=== PATIENT | male | born 1965 | race Caucasian/White ===

== ENCOUNTER → 2016-11-11 | Outpatient (CLI) | payer BC ==
[~2016-11-11] MED LIST: FLUT0.15 INH; LUBI8CAP4 PO; VALA500T60 PO; [UNRECOGNIZED DRUG - OTHER] PO
--- NOTE | 2016-11-11 10:13 | DIAGNOSTIC IMAGING REPORT ---
FUSION CT SINUSES W/O HISTORY: J34.3 Hypertrophy of both inferior nasal turbinates TECHNIQUE: Multiaxial CT images of the sinuses were performed and reformatted in the coronal plane without intravenous contrast. Fusion CT sinus protocol was also obtained. COMPARISON STUDY: Sinus CT outside hospital 10/11/2016. FINDINGS: Mild mucosal thickening within the frontal sinuses, sphenoid sinuses, and maxillary sinuses. This is not significantly change. No fluid levels within the paranasal sinuses. Near-complete opacification of the residual ethmoid air cells, right greater than left. A 4 mm polyp along the right side of the nasal septum remains unchanged. The mastoid air cells are clear. No evidence for carotid canal dehiscence. Minimal S-shaped deviation of the nasal septum with a small right-sided nasal spur. Left-sided scleral buckle is again noted. Postoperative changes of bilateral middle turbinectomies and maxillary antrostomies. The residual maxillary ostia demonstrate mild mucosal thickening but are patent. Bilateral frontoethmoidal recesses are partially opacified. The visualized brain parenchyma is unremarkable. Scattered punctate calcifications within the palatine tonsils. The pterygopalatine fossa are well-maintained. IMPRESSION: 1. No change compared to the prior study. 2. Mild mucosal thickening within the paranasal sinuses with near complete opacification of the ethmoid air cells, right greater than left. 3. Postoperative changes. The residual maxillary ostia are patent. Electronically signed by: Bebeto Lopez M.D. 11/11/2016 10:37 AM Dictated Date/Time: 11/11/2016 10:05 AM
[2016-11-11 14:39] LABS: BASO % 0.4 %; BASO ABS # 0.02 K/uL (0-0.2); COMPLETE YES; EOS % 3.9 %; HEMATOCRIT 42.4 % (42-52); LYMPH % 36.6 %; LYMPH ABS # 1.77 K/uL (1.2-3.4); MEAN CELL VOLUME 90.4 fL (80-100); MEAN CORPUSCULAR HEMOGLOBIN 29.6 pg (25-34); MEAN CORPUSCULAR HGB CONC 32.8 g/dl (32-36); MEAN PLATELET VOLUME 9.7 fL (7.4-10.4); MONO % 8.5 %; NEUT % 50.6 %; PLATELET COUNT 246 K/uL (130-400); RED BLOOD COUNT 4.69 M/uL (4.7-6.1); WHITE BLOOD COUNT 4.83 K/uL (4.8-10.8)
[2016-11-11 14:46] LABS: PROTHROMBIN TIME (PATIENT) 10.4 SECONDS (9.0-12.0)
[2016-11-11 15:03] LABS: POTASSIUM 4.4 mmol/L (3.5-5.1)
== END | disposition home or self-care (01) ==
LOC: C.CTS 09:32
DX: Z01.818 Encounter for other preprocedural examination (principal); J34.3 Hypertrophy of nasal turbinates

== ENCOUNTER → 2016-11-24 | Day surgery (SDC) | payer BC ==
[2016-11-13 07:53] VITALS: Ht 185.4 cm; Wt 123.6 kg
[~2016-11-24] VITALS: Ht 185.4 cm; Wt 123.6 kg
[~2016-11-24] MED LIST changes: +CEFAZOLIN 3000 MG/65 ML D5W IV SCH; +DEXAMETHASONE SOD INJ 4 MG/ML VIAL ONE; +EpINEphrine INJ 1MG/ML AMP 1 MG/ML AMP ONE; +FENTANYL CITRATE INJ 50 MCG/1 ML 2 ML VIAL ONE; +GLYCOPYRROLATE INJ 0.2 MG/ML VIAL ONE; +HYDROCODONE/ACETAMOPHEN 5/325MG TAB PO PRN; +KETAMINE HCL INJ 50 MG/ML 10 ML VIAL ONE; +LACTATED RINGER'S 1000ML 1,000 ML IV PRN; +LACTATED RINGER'S 1000ML 1,000 ML IV SCH; +LIDOCAINE 4% MPF SOAK 5 ML = 1 DOSE TOP ONE; +LIDOCAINE HCL 2% 2 ML VIAL (20MG/ML) ONE; +LIDOCAINE/EPINEPHRINE 1% INJ 50 ML VIAL ONE; +MIDAZOLAM HCL 1 MG/ML 2ML VIAL ONE; +NEOSTIGMINE METHYLSULFATE 5 MG/5 ML SYR ONE; +ONDANSETRON INJ 2 MG/ML 2 ML VIAL IV PRN; +ONDANSETRON INJ 2 MG/ML 2 ML VIAL ONE; +OXYMETAZOLINE HCL 0.05% NA SPR 15 ML BTL PRN; +OXYMETAZOLINE HCL 0.05% NA SPR 15 ML BTL SCH; +PROPOFOL IV EMULSION 10 MG/ML 20 ML VIAL IV ONE
--- NOTE | 2016-11-24 08:51 | History & Physical Bridge - SC ---
H&P Re-Evaluation Bridge Note: I have examined the patient, reviewed the History & Physical and in the interval since the performance of the History & Physical I have noted the following changes of clinical significance: No changes noted
[2016-11-24] MEDS: FENTANYL CITRATE INJ 50 MCG/1 ML 2 ML VIAL IV PRN ×2 (10:38→10:47)
--- NOTE | 2016-11-24 10:38 | [facility] Operative Report ---
Operative Report Operative Date November 24, 2016. Pre-Operative Diagnosis Chronic Sinusitis, Nasal Septal Deviation, Hypertrophy of Inferior Nasal Turbinates Post-Operative Diagnosis Same Procedure(s) Performed Revision Image Guided Endoscopic Sinus Surgery, Septoplasty, Bilateral Turbinate Reduction And Turbinoplasty Surgeon Dr. Whitfield Crude Tester Surgeon(s) None Estimated Blood Loss 25 mL Findings 1. SYNECHIA BETWEEN RIGHT SEPTUM AND LATERAL NASAL WALL 2. MILD TO MODERATE R DNS 3. L>R ITH 4. POLYPS WITHIN BILATERAL ETHMOID SINUSES 5. POLYPOID MUCOSAL THICKENING INVOLVING ALL PARANASAL SINUSES Specimens None I attest to the content of the Intraoperative Record and any orders documented therein. Any exceptions are noted below.
--- NOTE | 2016-11-24 10:40 | Discharge Instructions ---
Discharge Instructions Date of Service November 24, 2016. Admission Reason for Admission: Chronic Sinusitis, Nasal Septal Deviation, Hypertr Discharge Discharge Diagnosis / Problem: SAME Discharge Goals Goal(s): Therapeutic intervention Activity Recommendations Activity Limitations: as noted below NO DRIVING WHILE ON NORCO; LIGHT ACTIVITY FOR 2WEEKS; NO NOSE BLOWING FOR 2WEEKS . Current Hospital Diet Patient's current hospital diet: Discharge Diet Recommended Diet: Regular Diet Procedures Procedures Performed: Revision Image Guided Endoscopic Sinus Surgery, Septoplasty, Bilateral Turbinate Reduction And Turbinoplasty Pending Studies Studies pending at discharge: no Medical Emergencies . Who to Call and When: Medical Emergencies: If at any time you feel your situation is an emergency, please call 911 immediately. . Non-Emergent Contact Non-Emergency issues call your: Surgeon . . "Provider Documentation" section prepared by Benjamin Whitfield. . VTE Core Measure Inpt VTE Proph given/why not?: SCD's
--- NOTE | 2016-11-24 10:56 | Anesthesia Progress Nt - [facility] ---
Anesthesia Post Op Note Date & Time November 24, 2016 at 10:55 Vital Signs Pain Intensity: 5.0 Vital Signs Past 12 Hours Date Time Temp Pulse Resp B/P Pulse Ox O2 Delivery O2 Flow Rate FiO2 11/24/16 10:30 36.4 96 12 171/87 99 Humidified Oxygen 6 Mask 11/24/16 07:42 36.6 73 16 127/88 98 Room Air Notes Mental Status: alert / awake / arousable, participated in evaluation Pt Amnestic to Procedure: Yes Nausea / Vomiting: adequately controlled Pain: adequately controlled Airway Patency, RR, SpO2: stable & adequate BP & HR: stable & adequate Hydration State: stable & adequate Anesthetic Complications: no major complications apparent Pt doing well. Just some burning around surgical site.
[2016-11-24 11:14] VITALS: TEMP 36.5
[2016-11-24 12:05] VITALS: BP 149/85; PULSE 67; O2SAT 98
--- NOTE | 2016-11-24 15:31 | OPERATIVE REPORT ---
DATE OF OPERATION: 11/24/2016 PREOPERATIVE DIAGNOSES: 1. Chronic polypoid rhinosinusitis. 2. Right septal deviation. 3. Right nasal adhesions. 4. Left greater than right inferior turbinate hypertrophy. POSTOPERATIVE DIAGNOSES: 1. Chronic polypoid rhinosinusitis. 2. Right septal deviation. 3. Right nasal adhesions. 4. Left greater than right inferior turbinate hypertrophy. PROCEDURES: [employer] navigation image guided revision, bilateral endoscopic sinus surgery consisting of: 1. Revision bilateral maxillary antrostomies. 2. Revision bilateral complete ethmoidectomies. 3. Right nasal lysis of adhesions. 4. Balloon assisted bilateral frontal sinusotomies. 5. Bilateral sphenoidotomies. 6. Revision septoplasty. 7. Bilateral revision inferior turbinate outfracture and turbinoplasty. SURGEON: Dr. Whitfield. ANESTHESIA: General endotracheal. ESTIMATED BLOOD LOSS: 25 mL. FINDINGS: 1. Synechia between the right side of the nasal septum and the lateral nasal wall. 2. Mild to moderate right nasal septal deviation. 3. Left greater than right inferior turbinate hypertrophy. 4. Polyps within the bilateral ethmoid sinuses. 5. Very small previous maxillary antrostomies. 6. Polypoid mucosal thickening involving all of the paranasal sinuses bilaterally. SPECIMENS: None. COMPLICATIONS: None. INDICATIONS: The patient is a 51-year-old male with a history of chronic polypoid rhinosinusitis who underwent endoscopic sinus surgery by another surgeon several months ago. He continued to have symptomatology and states that the other surgeon said there was nothing else that he could do for him. He continued to have problems with recurrent acute and chronic rhinosinusitis requiring multiple antibiotics and steroids. A posttreatment fusion CT scan of the sinuses revealed bilateral pansinusitis with synechia between the right nasal septum and lateral nasal wall as well as evidence of likely polypoid mucosal thickening versus polyps involving the bilateral ethmoid sinuses. In addition, he has mild to moderate right septal deviation and left greater than right inferior turbinate hypertrophy. He presents for the above-mentioned procedure on an outpatient elective basis. DESCRIPTION OF PROCEDURE: After informed consent had been obtained from the patient, the patient was wheeled to the operating room and placed on the operating table in the supine position. Monitors were placed. After induction of general endotracheal anesthesia, the [employer] fusion headset was placed over the forehead and was registered, verified, and calibrated and used for the majority of the case. Lidocaine and epinephrine pledgets were placed in the bilateral nasal cavities and pressure applied. After allowing adequate time for vasoconstriction and decongestion, the left-sided pledgets were removed and the left side was inspected. There was a previous maxillary antrostomy, but this was quite small and there was some residual uncinate process that was evident. There was synechia between the left middle turbinate and lateral nasal wall blocking visualization of the superior aspect of the ethmoid sinus. The middle turbinate and lateral nasal wall as well as uncinate process were injected with 1% lidocaine with 1:100,000 epinephrine. A lidocaine and epinephrine pledget was then placed into the left ethmoid cavity/middle meatus. The right side was then addressed in a similar fashion with similar intraoperative findings except on this side there was also a synechia between the right side of the septum and the lateral nasal wall in the mid and posterior septum. This was injected with 1% lidocaine with 1:100,000 epinephrine. A freer elevator was used to lyse the synechia. Of note, there was mild to moderate right-sided septal deviation. A lidocaine and epinephrine pledget was then placed into the right ethmoid sinus. Left pledget was removed. Powered instrumentation was used to perform a revision complete ethmoidectomy removing large amount of polyps from the superior aspect of the anterior and posterior ethmoid sinuses. Using a curved frontal sinus suction, the left frontal sinus was entered and then the suction was removed. Using a size 7 frontal sinus balloon, the left frontal recess tract and frontal sinus was dilated by inflating the balloon to 12 atmospheres of pressure in 3 different locations along the left frontal recess tract. Powered instrumentation was used to remove diseased polypoid tissue from the left frontal ethmoid recess. The patient's previous maxillary antrostomy was found to be very small. This was enlarged posteriorly using straight Frantz-Cut forceps, inferiorly using backbiting forceps and powered instrumentation, and anteriorly using backbiting forceps and powered instrumentation. Of note, there was polypoid mucosal thickening involving the left maxillary sinus. Using a straight suction under image guidance, the left sphenoid sinus was then entered and the medial and inferior aspect of the sphenoid sinus ostium was enlarged using powered instrumentation. A pledget was then placed into the left ethmoid cavity. The right side was then addressed in a similar fashion with similar intraoperative findings. The nasal septum was then injected with 1% lidocaine with 1:100,000 epinephrine. After allowing adequate time for vasoconstriction, a #15 scalpel was used to make a left [place] incision through which the left-sided mucoperichondrial mucoperiosteal flap was elevated. There was residual quadrangular cartilage which was incised using a #15 scalpel. The right-sided mucoperichondrial mucoperiosteal flap was then elevated through this cartilaginous incision. There is residual septal cartilage superiorly and posteriorly which was removed using Justo-Delmy forceps. Inferiorly, there was a septal spur which was also addressed; however, the lining overlying this bone was quite thin and therefore a Hernandez elevator was used to infracture the nasal septum inferiorly to the left hand side from the right hand side in order to straighten out this bony septal spur rather than remove the bone for fear of causing a septal perforation. This resulted in improvement of the patient's nasal airway. The septal cavity was then suctioned. The left [place] incision was closed with several simple erupted 4-0 chromic sutures. A 4-0 plain gut suture and a Luis needle was then used to perform a quilting stitch of the mucoperichondrial mucoperiosteal flaps bilaterally to help prevent septal hematoma. A Hernandez elevator was then used to infracture and subsequently outfracture the inferior turbinates bilaterally. These were injected with 1% lidocaine with 1:100,000 epinephrine. A 2.0 mm turbinate blade using powered instrumentation was then used to perform bilateral inferior turbinoplasties in a submucosal fashion. Of note, there was left greater than right inferior turbinate hypertrophy. The sinonasal cavities were then suctioned. Merogel was then placed in the bilateral ethmoid cavities and middle meati. The nasal cavity and nasopharynx were then suctioned. An orogastric tube was placed and the stomach was suctioned free of air and stomach contents. This marked the end of the case. The patient tolerated the procedure well and there were no apparent complications. The patient was extubated and transferred to recovery room in stable condition. I attest to the content of the Intraoperative Record and any orders documented therein. Any exceptio ns are noted below.
== END | disposition home or self-care (01) ==
LOC: X.SURG 07:25
DX: J32.9 Chronic sinusitis, unspecified (principal); J34.2 Deviated nasal septum; J34.89 Other specified disorders of nose and nasal sinuses; J34.3 Hypertrophy of nasal turbinates; Z79.899 Other long term (current) drug therapy

== ENCOUNTER 2017-07-31 05:47 | Day surgery (SDC) | payer BC ==
[2017-07-03 11:24] VITALS: BMI 35.0
--- NOTE | 2017-07-03 12:00 | PAT Medication Instructions ---
Service Date Jul 03, 2017. Current Home Medication List Fluticasone Propionate (Nasal) (Flonase Allergy Relief), 1 SPRAY INTNAS QAM Lubiprostone (Amitiza), 8 MCG PO DIRECTED PRN for Constipation Valacyclovir (Valtrex), 500 MG PO BID PRN for OUTBREAKS [phentermine], 15 MG PO QAM Medication Instructions For Your Scheduled Surgery - Hold the following medications the morning of surgery: Lubiprostone (Amitiza), 8 MCG PO DIRECTED PRN for Constipation [phentermine], 15 MG PO QAM - Take the following medications the morning of surgery with a sip of water: Fluticasone Propionate (Nasal) (Flonase Allergy Relief), 1 SPRAY INTNAS QAM Valacyclovir (Valtrex), 500 MG PO BID PRN for OUTBREAKS - Take the following medications as scheduled the night before surgery: Lubiprostone (Amitiza), 8 MCG PO DIRECTED PRN for Constipation (if needed) Valacyclovir (Valtrex), 500 MG PO BID PRN for OUTBREAKS (if needed) If you have any questions please call us at [phone] or [phone] or [phone]
--- NOTE | 2017-07-03 12:52 | DIAGNOSTIC IMAGING REPORT ---
CHEST 2 VIEWS ROUTINE CLINICAL HISTORY: PAT preoperative evaluation COMPARISON STUDY: No previous studies for comparison. FINDINGS: The bones soft tissues and hemidiaphragms are normal. The cardiomediastinal silhouette is normal. The lungs are clear. The pulmonary vasculature is normal. IMPRESSION: Negative chest. The above report was generated using voice recognition software. It may contain grammatical, syntax or spelling errors. Electronically signed by: Enoch Adorno M.D. 07/03/2017 12:51 PM Dictated Date/Time: 07/03/2017 12:51 PM
[2017-07-03 12:58] LABS: BASO % 0.6 %; BASO ABS # 0.03 K/uL (0-0.2); EOS % 4.1 %; HEMATOCRIT 41.5 % (42-52); IG# 0.01 K/uL (0.00-0.02); LYMPH % 40.4 %; LYMPH ABS # 1.96 K/uL (1.2-3.4); MEAN CELL VOLUME 89.6 fL (80-100); MEAN CORPUSCULAR HEMOGLOBIN 30.2 pg (25-34); MEAN CORPUSCULAR HGB CONC 33.7 g/dl (32-36); MEAN PLATELET VOLUME 9.6 fL (7.4-10.4); MONO % 7.4 %; MONO ABS # 0.36 K/uL (0.11-0.59); NEUT % 47.3 %; NEUT ABS # 2.29 K/uL (1.4-6.5); PLATELET COUNT 222 K/uL (130-400); RED CELL DISTRIBUTION WIDTH CV 13.3 % (11.5-14.5); RED CELL DISTRIBUTION WIDTH SD 43.7 fL (36.4-46.3); WHITE BLOOD COUNT 4.85 K/uL (4.8-10.8)
[2017-07-03 13:06] LABS: PTT PATIENT 27.1 SECONDS (21.0-31.0)
[2017-07-03 13:30] LABS: HEMOGLOBIN A1C 5.7 % (4.5-5.6)
[2017-07-03 14:39] LABS: ALBUMIN 4.1 gm/dl (3.4-5.0); CALCIUM 9.2 mg/dl (8.5-10.1); CREATININE 1.09 mg/dl (0.60-1.40); POTASSIUM 4.2 mmol/L (3.5-5.1)
--- NOTE | 2017-07-30 13:30 | History and Physical ---
History & Physical Date Jul 30, 2017. Chief Complaint left foot pain History of Present Illness The patient is a 52 year old male with complaints of left great toe pain. He was treated conservatively for 1st MTP osteoarthritis but failed conservative management. He is now being set up for surgical tx. Past Medical/Surgical History PMH: Obesity Social Hx: No smoking, occasional alcohol use. Past surgical hx: left knee, left eye, Right 1st MTP hemiarthroplasty, sinus surgery Allergies Coded Allergies: No Known Allergies (Unverified , 07/03/17) Home Medications Scheduled Fluticasone Propionate (Nasal) (Flonase Allergy Relief), 1 SPRAY INTNAS QAM [phentermine], 15 MG PO QAM Scheduled PRN Lubiprostone (Amitiza), 8 MCG PO DIRECTED PRN for Constipation Valacyclovir (Valtrex), 500 MG PO BID PRN for OUTBREAKS Physical Examination Skin: warm/dry, no rash Eyes: normal inspection ENT: normal ENT inspection Head: normocephalic, atraumatic Neck: supple, no adenopathy, trachea midline Respiratory/Chest: lungs clear, normal breath sounds, no respiratory distress Cardiovascular: regular rate, rhythm, no murmur Abdomen / GI: normal bowel sounds, non tender Extremities: + pertinent finding (Left foot: 1st MTP swelling and dorsal prominence. Painful PROM. Tender at the 1st MTP. Tender at the 2nd toe. 2nd Hammertoe.) Neurologic/Psych: no motor/sensory deficits, alert, normal reflexes Diagnosis Left foot 1st MTP DJD Left foot 2nd hammertoe Plan of Treatment Recommend a left 1st MTP Arthrosurface hemiarthroplasty, 2nd DIP joint DuVries arthroplasty. All potential risks, benefits, complications, alternatives, and rehab have been discussed and the patient wishes to proceed. He will be scheduled for 07.31.17.
[~2017-07-31] VITALS: Ht 188 cm; Wt 123.6 kg
[~2017-07-31 05:47] MED LIST changes: -CEFAZOLIN 3000 MG/65 ML D5W IV SCH; -DEXAMETHASONE SOD INJ 4 MG/ML VIAL ONE; -EpINEphrine INJ 1MG/ML AMP 1 MG/ML AMP ONE; -FENTANYL CITRATE INJ 50 MCG/1 ML 2 ML VIAL ONE; -FLUT0.15 INH; +FLUT0.15 INTNAS; -GLYCOPYRROLATE INJ 0.2 MG/ML VIAL ONE; -HYDROCODONE/ACETAMOPHEN 5/325MG TAB PO PRN; -KETAMINE HCL INJ 50 MG/ML 10 ML VIAL ONE; -LACTATED RINGER'S 1000ML 1,000 ML IV PRN; -LACTATED RINGER'S 1000ML 1,000 ML IV SCH; -LIDOCAINE 4% MPF SOAK 5 ML = 1 DOSE TOP ONE; -LIDOCAINE HCL 2% 2 ML VIAL (20MG/ML) ONE; -LIDOCAINE/EPINEPHRINE 1% INJ 50 ML VIAL ONE; -MIDAZOLAM HCL 1 MG/ML 2ML VIAL ONE; -NEOSTIGMINE METHYLSULFATE 5 MG/5 ML SYR ONE; -ONDANSETRON INJ 2 MG/ML 2 ML VIAL IV PRN; -ONDANSETRON INJ 2 MG/ML 2 ML VIAL ONE; -OXYMETAZOLINE HCL 0.05% NA SPR 15 ML BTL PRN; -OXYMETAZOLINE HCL 0.05% NA SPR 15 ML BTL SCH; -PROPOFOL IV EMULSION 10 MG/ML 20 ML VIAL IV ONE; -[UNRECOGNIZED DRUG - OTHER] PO; +phentermine PO
[2017-07-31] MEDS ORDERED: LACTATED RINGER'S 1000ML 1,000 ML IV SCH (06:00)
[2017-07-31] MEDS ORDERED: CEFAZOLIN 3000MG IV PUSH 15 ML IV SCH (06:00)
[2017-07-31 06:16] VITALS: BP 118/85; PULSE 63; TEMP 36.7; O2SAT 98; Ht 188 cm; Wt 123.6 kg
[2017-07-31] MEDS ORDERED: ROPIVACAINE 0.5% 5 MG/ML 30 ML VIAL ONE (06:29)
[2017-07-31] MEDS ORDERED: BUPIVACAINE 0.25% 30 ML VIAL ONE (06:30)
[2017-07-31] MEDS ORDERED: BACITRACIN 50000 UNIT VIAL ONE (06:50)
[2017-07-31] MEDS ORDERED: MIDAZOLAM HCL 1 MG/ML 2ML VIAL ONE ×2 (07:08→07:22)
[2017-07-31] MEDS ORDERED: DEXAMETHASONE SOD INJ 4 MG/ML VIAL ONE (07:08)
[2017-07-31] MEDS ORDERED: LIDOCAINE HCL 2% 2 ML VIAL (20MG/ML) ONE (07:08)
[2017-07-31] MEDS ORDERED: FENTANYL CITRATE INJ 50 MCG/1 ML 2 ML VIAL ONE ×4 (07:08→09:51)
[2017-07-31] MEDS ORDERED: ONDANSETRON INJ 2 MG/ML 2 ML VIAL ONE (07:08)
[2017-07-31] MEDS ORDERED: PROPOFOL IV EMULSION 10 MG/ML 20 ML VIAL IV ONE (07:08)
[2017-07-31] MEDS ORDERED: KETAMINE HCL INJ 50 MG/ML 10 ML VIAL ONE (07:12)
--- NOTE | 2017-07-31 09:16 | [facility] Post Operative Brief Note ---
Immediate Operative Summary Operative Date Jul 31, 2017. 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 Zulay Em [facility] Manager Surgeon(s) Remington Encarnacion PA-C Estimated Blood Loss 1 ml Findings see dict Specimens None Per Surgeon Drains None Anesthesia GLMA w/ popliteal block Complication(s) None Disposition Recovery Room / PACU
[2017-07-31] MEDS ORDERED: OXYC-57 PO (09:36)
[2017-07-31] MEDS ORDERED: PROM25TA9 PO (09:36)
[2017-07-31] MEDS ORDERED: ASPI81TA28 PO (09:36)
--- NOTE | 2017-07-31 09:38 | Discharge Instructions ---
Discharge Instructions Date of Service Jul 31, 2017. Admission Reason for Admission: Left Ankle/Foot Osteoarthritis, Hammer Toe(S) Discharge Discharge Diagnosis / Problem: left 1st metatarsalphalangeal osteoarthritis Discharge Goals Goal(s): Decrease discomfort, Improve function Activity Recommendations Activity Limitations: per Instructions/Follow-up section Weightbearing Status: Left partial (Heel weightbearing in boot only) . Instructions / Follow-Up Instructions / Follow-Up ACTIVITY RECOMMENDATIONS: Limitations: Heel weight bearing only if able to tolerate. Range of motion: The pin in the 2nd toe will keep your 2nd toe from moving. When you feel comfortable, you may do passive range of motion with your great toe. Passive range of motion means that you manipulate the big toe to do small ranges of flexion and extension. The dressing will inhibit too much motion. SPECIAL CARE INSTRUCTIONS: * Some drainage onto the dressing is normal and is no cause for alarm. * Some swelling is natural especially after walking. * When resting, keep your foot elevated above the level of your heart. * Call [facility] if you notice: -Increased drainage -Fever over 101 degrees F -Severe constant pain BANDAGE: * Leave bandage/cast in place unless otherwise directed. * Keep bandage/cast dry at all times. PIN CARE: * Leave pins alone. * If pins come loose or fall out, notify physician. FOLLOW UP VISIT WITH DR. GAMBINO If appointment is not already scheduled: Please call [facility] after you get home today to schedule a follow-up appointment for [address] Gambino at . Current Hospital Diet Patient's current hospital diet: Discharge Diet Recommended Diet: Regular Diet Procedures Procedures Performed: Left Foot 1st Metatarsophalangeal Joint Arthrosurface Hemiarthroplasty, 2nd Distal Interphalangeal DuVries Arthroplasty Procedure Pending Studies Studies pending at discharge: no Laboratory Results Hemoglobin A1c Test 07/03/17 12:06 Range/Units Estimated Average Glucose 117 mg/dl Hemoglobin A1c 5.7 H 4.5-5.6 % Medical Emergencies . Who to Call and When: Medical Emergencies: If at any time you feel your situation is an emergency, please call 911 immediately. . Non-Emergent Contact Non-Emergency issues call your: Surgeon Call Non-Emergent contact if: temperature is above 101, your pain is not controlled, your pain is worsening, wound has increased drainage . "Provider Documentation" section prepared by Remington Encarnacion. . VTE Core Measure Inpt VTE Proph given/why not?: SCD's
--- NOTE | 2017-07-31 09:40 | OPERATIVE REPORT ---
DATE OF OPERATION: 07/31/2017 PREOPERATIVE DIAGNOSES: 1. 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 2. Hallux rigidus. 3. Second hammertoe involving the distal interphalangeal joint. POSTOPERATIVE DIAGNOSES: Same. PROCEDURES: 1. Left foot first metatarsophalangeal joint Arthrosurface hemiarthroplasty. 2. Second distal interphalangeal joint DuVries arthroplasty. SURGEON: Dr. Bakari Em. ENGINE REPAIRER: Remington Encarnacion PA-C, who was present for patient positioning, sterile prep and drape, management of retractors and instruments. He was present through the critical portions of the case including wound closure, application of sterile dressing and transport of the patient to recovery. ANESTHESIA: General LMA with popliteal block. SPECIMENS: None. DRAINS: None. COMPLICATIONS: None. BLOOD LOSS: 1 mL. PERTINENT HISTORY: This is a 52-year-old gentleman with chronic progressive and ongoing left foot pain and deformity. He attempted conservative management including shoe wear modification, activity modification, shoe inserts, anti-inflammatories, rest, ice, elevation and joint injections. He had failed all measures. He had radiographic evidence of severe degenerative changes with loss of joint space, marginal osteophytes, subchondral sclerosis and subchondral cysts in the first metatarsophalangeal joint. The patient was scheduled for surgery as indicated. All potential risks, benefits, complications, alternatives, rehab, potential for incomplete relief of symptoms, need for further surgery, DVT, PE, , persistent pain, swelling, scarring, weakness, neurovascular injury, wound complications, hardware failure, nonunion, and malunion were discussed with the patient. The patient decided to proceed with the procedure as indicated. DESCRIPTION OF PROCEDURE: After popliteal block was administered, the patient was taken to the operative suite, placed supine on the operating room table. After reviewing consent and identification of proper operative site, the patient was anesthetized, LMA was placed. Tourniquet was placed high on the left thigh over cast padding. Left lower extremity was then sterilely prepped and draped in the usual fashion, elevated and exsanguinated with an Esmarch bandage. Esmarch tourniquet was applied over sterile surgical towel at the level of the ankle. The pneumatic tourniquet was not used during the case. Next, a 15 blade scalpel was used to make an incision over the dorsal aspect of the first metatarsophalangeal joint. The incision was then deepened through the subcutaneous tissue. Meticulous hemostasis was achieved with electrocautery. Full thickness skin flaps were developed. The extensor hallucis longus was identified, freed, retracted, and protected laterally. Next, a Weitlaner retractor was placed in the incision and then the dorsal capsule and extensor brevis was then incised in line with skin incision, elevated both medially and laterally. Next, a hypertrophic synovium was encountered and this was resected with a rongeur. Next, the capsule was then retracted with a rongeur and a 15 blade scalpel was used to release the capsular attachments of the first metatarsophalangeal joint dorsally, medially and laterally. Next, a McGlamry elevator was placed into the joint between the first metatarsal and the sesamoids. This was then hyperplantarflexed to release soft tissue contracture. Next, the rongeur was used to resect marginal osteophytes at the proximal phalanx of the great toe. Next, the wound was copiously irrigated with sterile normal saline. This was then followed by use of a guide pin and under fluoroscopic assistance was placed essentially into the center-center position of the first metatarsal. Next, the initial reamer was passed over the guidepin and used to ream for the post. Next, the bone tap was then used to tap the first metatarsal followed by irrigation with copious amounts of sterile normal saline with bacitracin and then implantation of the threaded post. This was countersunk approximately 1-1.25 mm. Next, the Law taper alignment carmita was then placed into the threaded post followed by measurement of the first metatarsal head. Next, appropriate dorsal phalange reamer was then placed into the threaded posts and then used to ream the dorsal phalange of the first metatarsal. Next, this was irrigated with sterile normal saline. A trial was then placed gently into the Carlos taper of the threaded post and then a sagittal saw was used to resect osteophytes circumferentially from around the trial within the first metatarsal head. Next, after excess bone was then excised wound was irrigated once again with sterile normal saline. This was then followed by impaction of the final implant into the threaded post and radiographs were obtained confirming position and alignment. A 15 blade scalpel incision was performed at the distal interphalangeal joint of the left second toe. Full thickness skin incision was made through the skin, extensor mechanism and capsule to the distal interphalangeal joint. Collateral ligaments were sacrificed with a 15 blade scalpel. Osteophytes were removed from the joint circumferentially and the distal aspect of the middle phalanx was then resected using a bone biting rongeur. Next, the wound was irrigated copiously with sterile normal saline. Next, 0.045-inch K-wire was driven out the tip of the second toe in a retrograde fashion under live fluoroscopic assistance, passed through the middle phalanx, proximal phalanx and then the second metatarsal. The tip of the pin was left outside the skin and it was then bent, cut and capped with the [place] ball. The wound was irrigated with sterile normal saline and then closed using 4-0 nylon sutures. Next, the wound was once again irrigated with sterile normal saline. The dorsal capsule was closed using 3-0 Vicryl suture then followed by closure of the dermis with buried interrupted 3-0 Vicryl x2 sutures and the skin was then closed using 4-0 nylon. Next, sterile compressive forefoot dressing was applied overwrapped with Coban. The tourniquet was released. The patient was awakened and taken to recovery in stable condition. I attest to the content of the Intraoperative Record and any orders documented therein. Any exception s are noted below.
[2017-07-31] MEDS ORDERED: FENTANYL CITRATE INJ 50 MCG/1 ML 2 ML VIAL IV PRN (09:45)
[2017-07-31] MEDS ORDERED: ATROPINE SULFATE 0.1 MG/ML 5ML SYR IV PRN (09:45)
[2017-07-31] MEDS ORDERED: OXYCODONE/ACETAMINOPHEN 5-325 TAB PO PRN (09:45)
[2017-07-31] MEDS ORDERED: EpHEDrine SULFATE INJ 50 MG/ML AMP IV PRN (09:45)
[2017-07-31] MEDS ORDERED: ONDANSETRON INJ 2 MG/ML 2 ML VIAL IV PRN (09:45)
[2017-07-31 10:20] VITALS: BP 119/72; PULSE 80; TEMP 36.3; O2SAT 100
--- NOTE | 2017-07-31 10:31 | DIAGNOSTIC IMAGING REPORT ---
FOOT MIN 3 VIEWS ROUTINE CLINICAL HISTORY: 52 years-old Male presenting with LT FOOT. TECHNIQUE: 2 fluoroscopic spot image(s) obtained as part of an intraoperative procedure. COMPARISON: None. FINDINGS/IMPRESSION: Single pin fixation across the second toe into the second metatarsal extending to the level of the proximal metaphysis of the second metatarsal. Postsurgical changes of prosthetic first metatarsal head. Normal anatomic alignment. Please see surgical report for further details. Fluoroscopy dosage (mGy): 0.8. Fluoroscopy time: 36.1 seconds. Number of fluoroscopic spot images: 2. Electronically signed by: Jaguar Patterson M.D. 07/31/2017 10:30 AM Dictated Date/Time: 07/31/2017 10:29 AM
--- NOTE | 2017-07-31 10:34 | Anesthesiology Progress Note ---
Anesthesia Post Op Note Date & Time Jul 31, 2017 at 10:34 Vital Signs Pain Intensity: 9 Vital Signs Past 12 Hours Date Time Temp Pulse Resp B/P (MAP) Pulse Ox O2 Delivery O2 Flow Rate FiO2 07/31/17 10:20 36.3 80 20 119/72 100 Room Air 07/31/17 10:05 36.3 55 16 134/83 100 Oxymask 3 07/31/17 09:55 64 16 120/83 99 Oxymask 3 07/31/17 09:45 65 16 130/84 99 Oxymask 10 07/31/17 09:35 36.2 66 16 117/73 99 Oxymask 10 07/31/17 06:16 36.7 63 20 118/85 (96) 98 Room Air Notes Mental Status: alert / awake / arousable, participated in evaluation Pt Amnestic to Procedure: Yes Nausea / Vomiting: adequately controlled Pain: adequately controlled Airway Patency, RR, SpO2: stable & adequate BP & HR: stable & adequate Hydration State: stable & adequate Anesthetic Complications: no major complications apparent
[2017-07-31 10:52] VITALS: BP 145/93; PULSE 60; O2SAT 97
[2017-07-31 11:17] VITALS: BP 150/79; PULSE 59; TEMP 36.7; O2SAT 98
[2017-07-31] MEDS ORDERED: HYDROmorphone INJ 2 MG/ML SYR/VIAL ONE (11:26)
[2017-07-31] MEDS ORDERED: HYDROmorphone INJ 1 MG/ML SYR IV ONE ×2 (11:30→12:00)
[2017-07-31 11:50] VITALS: BP 114/76; PULSE 66; O2SAT 95
[2017-07-31 12:50] VITALS: BP 123/79; PULSE 61; TEMP 36; O2SAT 100
== END 2017-07-31 13:10 | disposition home or self-care (01) ==
LOC: C.ACU 05:47
PROVIDERS: ATTEND Orthopaedic Surgery Sports Medicine
DX: M19.072 Primary osteoarthritis, left ankle and foot (principal); M20.22 Hallux rigidus, left foot; M20.42 Other hammer toe(s) (acquired), left foot; Z98.890 Other specified postprocedural states; E66.9 Obesity, unspecified; Z68.35 Body mass index [BMI] 35.0-35.9, adult

== ENCOUNTER → 2017-11-17 | Outpatient (CLI) | payer BC ==
[~2017-11-17] MED LIST changes: +AMOX875T PO; +ASPI81TA28 PO; +CPRDOTS OT; +DICL250C73 PO; +HYDR-5688 PO; +IBUP-1050 PO; +IBUP-1451 PO; +OFLO0.3D4 OT; +OXYC-57 PO; +PHEN37.5 PO; +PRED20TA2 PO; +PROM25TA9 PO; +VALA1TAB31 PO
--- NOTE | 2017-11-17 10:20 | DIAGNOSTIC IMAGING REPORT ---
TEMPORAL ORB/SELLA/TEMP W/O CLINICAL HISTORY: RT EAR PAIN pain TECHNIQUE: Transaxial acquisition with multi axial reformatted images COMPARISON STUDY: None FINDINGS: Near complete opacification of the right maxillary sinuses. No definite bony destructive changes identified at the current time. There is abnormal soft tissue encompassing all major ossicles of the middle ear. The scutum shows no evidence for erosive change. The tympanic membrane shows associated soft tissue obscuring its visualization. This suggestive of potential superimposed cholesteatoma versus extension of inflammatory tissue from the mastoids. Semicircular canals appear generally intact. Left mastoid is clear. The tympanic membrane is unremarkable. The left ossicles appear to be intact. IMPRESSION: 1. Near complete opacification of the right mastoid air cells with soft tissue opacification of the bulk of the middle ear encompassing the tympanic membrane and ossicles. 2. This may be a combination of right mastoiditis combined with a cholesteatoma, although the possibility of inflammatory change of the right mastoid invading into the middle ear cavity must be considered. 3. Left mastoids and left middle ear structures are unremarkable. 4. Postoperative changes to the sinuses which have been described previously including placement of bilateral antral windows and moderate residual mucosal thickening of all major sinuses. The above report was generated using voice recognition software. It may contain grammatical, syntax or spelling errors. Electronically signed by: Enoch Adorno M.D. 11/17/2017 10:18 AM Dictated Date/Time: 11/17/2017 10:13 AM
== END | disposition home or self-care (01) ==
LOC: C.CTS 09:42
PROVIDERS: ATTEND Physician Assistant
DX: H92.01 Otalgia, right ear (principal)

== ENCOUNTER 2017-11-18 10:54 | Emergency (ER) | payer BC ==
[~2017-11-18] VITALS: Ht 188 cm; Wt 127.0 kg
[~2017-11-18 10:54] MED LIST changes: -AMOX875T PO; -CPRDOTS OT; -DICL250C73 PO; -HYDR-5688 PO; -IBUP-1050 PO; -IBUP-1451 PO; -OFLO0.3D4 OT; -PHEN37.5 PO; -PRED20TA2 PO; -VALA1TAB31 PO
[2017-11-18 10:58] VITALS: TEMP 36.6
[2017-11-18] MEDS ORDERED: ONDANSETRON INJ 2 MG/ML 2 ML VIAL IV STA (11:08)
[2017-11-18] MEDS ORDERED: KETOROLAC TROMETHAMINE 30 MG/ML VIAL IV STA ×2 (11:08→13:34)
[2017-11-18] MEDS ORDERED: MoRPHine SULFATE 4 MG/ML 1 ML CARP\\VIAL IV STA (11:08)
[2017-11-18] MEDS ORDERED: SODIUM CHLORIDE 0.9% 1000ML 1,000 ML IV STA ×2 (11:08→11:36)
[2017-11-18] MEDS ORDERED: ACETAMINOPHEN IV 100 ML IV STA (11:08)
[2017-11-18] MEDS ORDERED: AMPICILLIN/SULBACTAM SOD INJ 3,000 MG in SODIUM CHLORIDE 0.9% 100ML 100 ML IV STA (11:36)
[2017-11-18] MEDS ORDERED: DEXAMETHASONE **PF** INJ 10 MG/ML VIAL IV ONE (11:45)
[2017-11-18 11:51] VITALS: Ht 188 cm; Wt 127.0 kg
[2017-11-18 11:59] LABS: BASO % 0.6 %; BASO ABS # 0.05 K/uL (0-0.2); EOS % 1.9 %; EOS ABS # 0.15 K/uL (0-0.5); HEMOGLOBIN 14.1 g/dL (14.0-18.0); IG# 0.06 K/uL (0.00-0.02); LYMPH % 34.6 %; LYMPH ABS # 2.68 K/uL (1.2-3.4); MEAN CELL VOLUME 86.9 fL (80-100); MEAN CORPUSCULAR HEMOGLOBIN 29.9 pg (25-34); MEAN CORPUSCULAR HGB CONC 34.4 g/dl (32-36); MONO % 9.4 %; MONO ABS # 0.73 K/uL (0.11-0.59); NEUT % 52.7 %; NEUT ABS # 4.07 K/uL (1.4-6.5); PLATELET COUNT 328 K/uL (130-400); RED CELL DISTRIBUTION WIDTH CV 12.6 % (11.5-14.5); RED CELL DISTRIBUTION WIDTH SD 40.8 fL (36.4-46.3); WHITE BLOOD COUNT 7.74 K/uL (4.8-10.8)
[2017-11-18 12:16] LABS: ALBUMIN 3.6 gm/dl (3.4-5.0); ALT/SGPT 59 U/L (12-78); AST/SGOT 25 U/L (15-37); BLOOD UREA NITROGEN 13 mg/dl (7-18); CALCIUM 9.7 mg/dl (8.5-10.1); CARBON DIOXIDE 27 mmol/L (21-32); CREATININE 1.22 mg/dl (0.60-1.40); GLUCOSE 106 mg/dl (70-99); LIPASE 114 U/L (73-393); POTASSIUM 4.5 mmol/L (3.5-5.1); SODIUM 134 mmol/L (136-145)
[2017-11-18] MEDS ORDERED: VALA1TAB31 PO (12:18)
[2017-11-18] MEDS ORDERED: DICL250C73 PO (12:18)
[2017-11-18] MEDS ORDERED: OFLO0.3D4 OT (12:18)
[2017-11-18] MEDS ORDERED: PHEN37.5 PO (12:18)
[2017-11-18 12:19] LABS: ALKALINE PHOSPHATASE 73 U/L (45-117); TOTAL PROTEIN 8.8 gm/dl (6.4-8.2)
[2017-11-18] MEDS ORDERED: MoRPHine SULFATE 10 MG/ML CARP/VIAL IV STA (13:07)
[2017-11-18] MEDS ORDERED: LIDOCAINE 1% BUFFERED INJ 5 ML VIAL INFIL STA (13:34)
[2017-11-18] MEDS ORDERED: IBUP-1451 PO (16:16)
[2017-11-18 16:18] VITALS: BP 160/89; PULSE 64; O2SAT 98
--- NOTE | 2017-11-18 16:18 | EMERGENCY ROOM VISIT NOTE ---
History Report prepared by Johann: Paulo Raza Under the Supervision of: Dr. Truong Corcoran M.D. First contact with patient: 11:03 Chief Complaint: EAR PAIN Stated Complaint: REALLY BAD EAR INFECTION, SENT BY [facility] History of Present Illness The patient is a 52 year old male who presents to the Emergency Room with complaints of constant right ear pain beginning 10 days ago. The patient describes his pain as "stabbing". He also complains of a headache and occasional dizziness. He was seen at [facility] six days ago and was discharged on Augmentin and Ofloxacin. The patient saw acute care in [place] five days ago, and was discharged on hydrocodone. He states that he felt a "pop" while sleeping three days ago, and noticed blood on his pillow. He saw his primary care office two days ago, and was sent home on Dicloxacillin. The patient received a temporal bone CT today with his primary care office. He was then seen by Dr. Whitfield of ENT this morning and was told that he should be admitted to the hospital. Dr. Whitfield told the patient he would admit him, but will be going on vacation and recommended consultation with Dr. Thomason. Dr. Whitfield drained his ear in his office today. The patient's CT showed congestion of the ear. He states that he has had fevers for the past several days. He states that he has been vomiting every time he eats as well. He is able to keep down water. The patient denies cough, chills, or congestion. He is not on any blood thinners. He states that his Hydrocodone temporarily resolves his pain for 40-50 minutes at a time. Source of History: patient Onset: 10 days ago Position: ear (right) Quality: stabbing Timing: constant Associated Symptoms: + fevers, + headache, + vomiting, No chills, No cough Note: Negative: congestion. Positive: occasional dizziness. Review of Systems See HPI for pertinent positives and negatives. A total of ten systems were reviewed and were otherwise negative. Past Medical & Surgical Medical Problems: (1) No Known Active Medical Problems Surgical Problems: (1) H/O sinus surgery Family History No pertinent family history stated. Social History Smoking Status: Never Smoker Housing Status: lives with family Occupation Status: employed Current/Historical Medications Scheduled Dicloxacillin Sodium (Dynapen), 250 MG PO Q6 Fluticasone Propionate (Nasal) (Flonase Allergy Relief), 1 SPRAY INTNAS QAM Ofloxacin (Otic) (Floxin Otic), 10 DROPS OT Q12 Phentermine Hcl (Phentermine Hcl), 1 TAB PO QAM Valacyclovir Hcl (Valtrex), 1 TAB PO Q12 Scheduled PRN Ibuprofen Tab (Motrin), 800 MG PO Q8H PRN for Pain Allergies Coded Allergies: No Known Allergies (Verified , 11/18/17) Physical Exam Vital Signs Date Time Temp Pulse Resp B/P (MAP) Pulse Ox O2 Delivery O2 Flow Rate FiO2 11/18/17 16:18 64 18 160/89 98 11/18/17 15:45 63 22 147/91 11/18/17 13:43 56 20 135/86 97 Room Air 11/18/17 12:35 54 11/18/17 11:50 56 22 130/97 98 Room Air 11/18/17 10:58 36.6 78 20 163/101 99 Room Air Physical Exam GENERAL: Awake, alert, uncomfortable-appearing, in no distress HENT: Normocephalic, atraumatic. Oropharynx unremarkable other than dry mucous membranes. Edematous right EAC and TM with purulent discharge. Unable to assess for perforation given edema and patient discomfort. Significant right mastoid tenderness. No swelling or redness. EYES: Normal conjunctiva. Sclera non-icteric. NECK: Supple. No nuchal rigidity. FROM. No JVD. RESPIRATORY: Clear to auscultation. CARDIAC: Regular rate, normal rhythm. Extremities warm and well perfused. Pulses equal. ABDOMEN: Soft, non-distended. No tenderness to palpation. No rebound or guarding. No masses. RECTAL: Deferred. MUSCULOSKELETAL: Chest examination reveals no tenderness. The back is symmetrical on inspection without obvious abnormality. There is no CVA tenderness to palpation. No joint edema. LOWER EXTREMITIES: Calves are equal size bilaterally and non-tender. No edema. No discoloration. NEURO: Normal sensorium. No sensory or motor deficits noted. SKIN: No rash or jaundice noted. Medical Decision & Procedures ER Provider Diagnostic Interpretation: Radiology results as stated below per my review and radiologist interpretation: TEMPORAL ORB/SELLA/TEMP W/O (11/17/2017 - Yesterday) FINDINGS: Near complete opacification of the right maxillary sinuses. No definite bony destructive changes identified at the current time. There is abnormal soft tissue encompassing all major ossicles of the middle ear. The scutum shows no evidence for erosive change. The tympanic membrane shows associated soft tissue obscuring its visualization. This suggestive of potential superimposed cholesteatoma versus extension of inflammatory tissue from the mastoids. Semicircular canals appear generally intact. Left mastoid is clear. The tympanic membrane is unremarkable. The left ossicles appear to be intact. IMPRESSION: 1. Near complete opacification of the right mastoid air cells with soft tissue opacification of the bulk of the middle ear encompassing the tympanic membrane and ossicles. 2. This may be a combination of right mastoiditis combined with a cholesteatoma, although the possibility of inflammatory change of the right mastoid invading into the middle ear cavity must be considered. 3. Left mastoids and left middle ear structures are unremarkable. 4. Postoperative changes to the sinuses which have been described previously including placement of bilateral antral windows and moderate residual mucosal thickening of all major sinuses. The above report was generated using voice recognition software. It may contain grammatical, syntax or spelling errors. Electronically signed by: Enoch Adorno M.D. 11/17/2017 10:18 AM Laboratory Results 11/18/17 11:40 Red Blood Count 4.72, Mean Corpuscular Volume 86.9, Mean Corpuscular Hemoglobin 29.9, Mean Corpuscular Hemoglobin Concent 34.4, Mean Platelet Volume 9.0, Neutrophils (%) (Auto) 52.7, Lymphocytes (%) (Auto) 34.6, Monocytes (%) (Auto) 9.4, Eosinophils (%) (Auto) 1.9, Basophils (%) (Auto) 0.6, Neutrophils # (Auto) 4.07, Lymphocytes # (Auto) 2.68, Monocytes # (Auto) 0.73, Eosinophils # (Auto) 0.15, Basophils # (Auto) 0.05 11/18/17 11:40 Test 11/18/17 11:40 11/18/17 13:56 White Blood Count 7.74 K/uL (4.8-10.8) Red Blood Count 4.72 M/uL (4.7-6.1) Hemoglobin 14.1 g/dL (14.0-18.0) Hematocrit 41.0 % (42-52) Mean Corpuscular Volume 86.9 fL (80-100) Mean Corpuscular Hemoglobin 29.9 pg (25-34) Mean Corpuscular Hemoglobin Concent 34.4 g/dl (32-36) Platelet Count 328 K/uL (130-400) Mean Platelet Volume 9.0 fL (7.4-10.4) Neutrophils (%) (Auto) 52.7 % Lymphocytes (%) (Auto) 34.6 % Monocytes (%) (Auto) 9.4 % Eosinophils (%) (Auto) 1.9 % Basophils (%) (Auto) 0.6 % Neutrophils # (Auto) 4.07 K/uL (1.4-6.5) Lymphocytes # (Auto) 2.68 K/uL (1.2-3.4) Monocytes # (Auto) 0.73 K/uL (0.11-0.59) Eosinophils # (Auto) 0.15 K/uL (0-0.5) Basophils # (Auto) 0.05 K/uL (0-0.2) RDW Standard Deviation 40.8 fL (36.4-46.3) RDW Coefficient of Variation 12.6 % (11.5-14.5) Immature Granulocyte % (Auto) 0.8 % Immature Granulocyte # (Auto) 0.06 K/uL (0.00-0.02) Anion Gap 4.0 mmol/L (3-11) Est Creatinine Clear Calc Drug Dose 101.5 ml/min Estimated GFR () 79.1 Estimated GFR (Non- 68.2 BUN/Creatinine Ratio 11.0 (10-20) Lactic Acid Level 2.2 mmol/L (0.4-2.0) Calcium Level 9.7 mg/dl (8.5-10.1) Total Bilirubin 0.3 mg/dl (0.2-1) Direct Bilirubin < 0.1 mg/dl (0-0.2) Aspartate Amino Transf (AST/SGOT) 25 U/L (15-37) Alanine Aminotransferase (ALT/SGPT) 59 U/L (12-78) Alkaline Phosphatase 73 U/L (45-117) Total Protein 8.8 gm/dl (6.4-8.2) Albumin 3.6 gm/dl (3.4-5.0) Lipase 114 U/L (73-393) Bedside Lactic Acid Venous 1.22 mmol/L (0.90-1.70) Laboratory results reviewed by me Medications Administered Medications (Trade) Dose Ordered Sig/Chon Route Start Time Stop Time Status Last Admin Dose Admin Sodium Chloride 1,000 ml @ 999 mls/hr Q1H1M STAT IV 11/18/17 11:08 11/18/17 12:08 DC 11/18/17 12:06 999 MLS/HR Ondansetron HCl (Zofran Inj) 4 mg NOW STAT IV 11/18/17 11:08 11/18/17 11:21 DC 11/18/17 11:59 4 MG Ketorolac Tromethamine (Toradol Inj) 15 mg NOW STAT IV 11/18/17 11:08 11/18/17 11:21 DC 11/18/17 12:01 15 MG Morphine Sulfate (MoRPHine SULFATE INJ) 4 mg NOW STAT IV 11/18/17 11:08 11/18/17 11:21 DC 11/18/17 12:00 4 MG Acetaminophen 100 ml @ 400 mls/hr NOW STAT IV 11/18/17 11:08 11/18/17 11:22 DC 11/18/17 12:07 400 MLS/HR Dexamethasone Sodium Phosphate (Dexamethasone Inj Pf) 10 mg NOW ONCE IV 11/18/17 11:45 11/18/17 11:46 DC 11/18/17 12:01 10 MG Ampicillin Sodium/ Sulbactam Sodium 3000 mg/Sodium Chloride 108 ml @ 200 mls/hr ONE STAT IV 11/18/17 11:36 11/18/17 12:08 DC 11/18/17 12:15 200 MLS/HR Sodium Chloride 1,000 ml @ 999 mls/hr Q1H1M STAT IV 11/18/17 11:36 11/18/17 12:36 DC 11/18/17 12:01 999 MLS/HR Morphine Sulfate (MoRPHine SULFATE INJ) 8 mg NOW STAT IV 11/18/17 13:07 11/18/17 13:09 DC 11/18/17 13:33 8 MG Lidocaine HCl (Buffered Lidocaine 1% Inj) 20 ml NOW STAT INFIL 11/18/17 13:34 11/18/17 13:39 DC 11/18/17 14:34 20 ML Ketorolac Tromethamine (Toradol Inj) 15 mg NOW STAT IV 11/18/17 13:34 11/18/17 13:39 DC 11/18/17 13:58 15 MG ED Course 1106: The patient was evaluated in room C3. A complete history and physical exam was performed. 1610: I reevaluated the patient. Discussed results and discharge instructions: he verbalized understanding and agreement. The patient is ready for discharge. Medical Decision I reviewed the patient's past medical history, medications, and the nursing notes as described above. Differential diagnosis: Etiologies such as otitis media, otitis externa, cholesteatoma, TM perforation, mastoiditis, cellulitis, abscess, as well as others were entertained. The patient is a 52 y/o gentleman who presents to the emergency department with worsening right ear pain, swelling, and drainage for the past week, now sent to ED per patient for admission by his ENT specialist, Dr. Jonas per HPI. On arrival the patient is uncomfortable but in NAD, AFVSS. One exam the patient has extensive edema to right EAC/TM with purulent drainage. Significant mastoid ttp without erythema, edema, or warmth. Outpatient CT demonstrates opacification of mastoid cells and middle ear/TM. Upon arrival case d/w Dr. Thomason , ENT on-call, who received report from Dr. Jonas. Recommends if w/u reassuring and patient improved does not necessarily need admission and could be scheduled for tympanostomy tube placement tomorrow. Does not feel MRI is necessary as patient's outpatient CT sufficient. Recommends Unasyn. Subsequently , w/u unremarkable with WBC wnl. Lactate initially 2.2 but cleared after IVF hydration suggesting likely 2/2 dehydration. Patient ultimately feeling improved IVF, Steroids, Toradol, Morphine, Lidocaine gtts. Dr. Thomason updated. Patient discharged in expedited manner to go to Dr. Thomason's clinic to arrange for procedure tomorrow. Findings and plan for follow-up reviewed with patient. Patient agreeable and d/c'd per discharge instructions. Medication Reconcilliation Current Medication List: was personally reviewed by me Blood Pressure Screening Patient's blood pressure: Elevated blood pressure Blood pressure disposition: Elevated BP felt to be situational Consults Time Called: [id number] Consulting Physician: Dr. Thomason - ENT Returned Call: [phone] I discussed the patient with Dr. Thomason of ENT. He states that the patient does not necessarily need to be admitted if he is nontoxic and his work-up is reassuring. Dr. Thomason will get the patient into the surgery center tomorrow if discharged. He agrees with IV Unasyn. 1607: I spoke with Dr. Thomason again. He would like the patient to be sent to his office immediately. Impression Primary Impression: Otitis media Additional Impression: Otitis externa Scribe Attestation The scribe's documentation has been prepared under my direction and personally reviewed by me in its entirety. I confirm that the note above accurately reflects all work, treatment, procedures, and medical decision making performed by me. Departure Information Dispostion Home / Self-Care Prescriptions Ibuprofen Tab (MOTRIN) 800 Mg Tab 800 MG PO Q8H Y for Pain for 7 Days, #21 TAB Prov: Truong Corcoran M.D. 11/18/17 Referrals Indy Campbell D.O. (PCP) Shelli Thomason M.D. Patient Instructions ED Otitis Externa, ED Otitis Media Acute Adult, My [facility] Additional Instructions Please follow up with ENT, Dr. Thomason, now to arrange surgery for tomorrow. Acetaminophen or ibuprofen for pain and fevers as needed. Continue your Augmentin antibiotic and Ofloxacin ear drops. Continue your Vicodin for breakthrough pain. Lidocaine drops every 2 hours as needed for ear canal pain. Drink plenty of fluids to ensure hydration. Return to the emergency department for worsening symptoms as described in the accompanying instructions. Problem Qualifiers
[2017-11-19] MEDS ORDERED: IBUP-1050 PO (08:15)
[2017-11-19] MEDS ORDERED: CPRDOTS OT (13:06)
[2017-11-19] MEDS ORDERED: PRED20TA2 PO (13:06)
[2017-11-19] MEDS ORDERED: AMOX875T PO (13:06)
[2017-11-19] MEDS ORDERED: HYDR-5688 PO (15:37)
== END 2017-11-18 16:19 | disposition home or self-care (01) ==
LOC: C.EDB 10:56 → C.EDC 16:19
DX: H66.91 Otitis media, unspecified, right ear (principal); H60.91 Unspecified otitis externa, right ear; Z98.890 Other specified postprocedural states